=== PATIENT | female | born 1955 | race Caucasian/White ===

== ENCOUNTER 2017-05-15 15:01 | Outpatient (CLI) | payer OTHER | END 2017-05-15 15:02 | disposition home or self-care (01) | LOC: BICRAD 15:01 | PROVIDERS: ATTEND Internal Medicine | DX: E11.9 Type 2 diabetes mellitus without complications; Z02.71 Encounter for disability determination; M47.897 Other spondylosis, lumbosacral region | CPT/HCPCS: 72100 ==

== ENCOUNTER 2019-08-04 14:16 | Outpatient (CLI) | payer MEDICARE, BC ==
--- NOTE | 2019-08-04 16:22 | BD ---
Exam: DEXA Bone Density 08/04/19 HISTORY: Postmenopausal screening for osteoporosis. FINDINGS: Lumbar Spine: BMD (g/cm2) T-SCORE Z-SCORE L1 0.655 -3.0 -1.4 L2 0.684 -3.1 -1.3 L3 0.815 -2.4 -0.5 L4 0.704 -3.2 -1.3 L1-L4 0.720 -3.0 -1.1 Femoral Neck: 0.527 -2.9 -1.3 Total Femur: 0.706 -1.9 -0.6 The ten year fracture risk for a major osteoporotic fracture is 19% and for hip fracture is 5.8%. Impression: Osteoporosis. POS: TIMOTEO
== END 2019-08-04 14:17 | disposition home or self-care (01) ==
LOC: BICMAMMO 14:16
PROVIDERS: ATTEND Internal Medicine Rheumatology
DX: M81.0 Age-related osteoporosis without current pathological fracture (principal)
CPT/HCPCS: 77080

== ENCOUNTER 2020-09-14 13:49 | Outpatient (CLI) | payer MEDICARE, BC | END 2020-09-14 13:50 | disposition home or self-care (01) | LOC: BICMAMMO 13:49 | PROVIDERS: ATTEND Internal Medicine Rheumatology | DX: M81.0 Age-related osteoporosis without current pathological fracture (principal) | CPT/HCPCS: 77080 ==